=== PATIENT | male | born 1970 | race Caucasian/White ===

== ENCOUNTER 2017-08-18 14:56 | Emergency (ER) | payer OTHER ==
[~2017-08-18] VITALS: Ht 177.8 cm; Wt 100.0 kg
[~2017-08-18 14:56] MED LIST: AMLO10TA2 PO; CORITAB PO; FLUT1SPR9 EACH NARE; LISI40TA PO; MENSTAB4; OMEP40CA2 PO; SILD20TA11 PO; TRIA1TAB5 PO
[2017-08-18 15:28] VITALS: BP 154/82; PULSE 79; RESP 20; TEMP 98.9; O2SAT 94
[2017-08-18] MEDS ORDERED: BENZ100 PO (16:32)
[2017-08-18] MEDS ORDERED: AMLO5TAB2 PO (16:32)
[2017-08-18] MEDS ORDERED: ZITHTAB PO (16:32)
[2017-08-18] MEDS ORDERED: RESP: ALBUTEROL 2.5 MG/IPRATROPIUM 0.5 MG NEB (SCH) INH ONE (17:00)
[2017-08-18 17:24] LABS: AUTOMATED NEUTROPHIL # 5.7 TH/MM3 (1.8-7.7); BASOPHIL % 0.5 % (0.0-2.0); EOSINOPHIL # 0.1 TH/MM3 (0-0.4); EOSINOPHIL % 1.7 % (0.0-4.0); HEMATOCRIT 39.6 % (39.0-51.0); HEMOGLOBIN 13.7 GM/DL (13.0-17.0); LYMPHOCYTE # 1.2 TH/MM3 (1.0-4.8); MEAN CELL VOLUME 88.2 FL (80.0-100.0); MEAN CORPUSCULAR HEMOGLOBIN 30.6 PG (27.0-34.0); MEAN CORPUSCULAR HGB CONC 34.7 % (32.0-36.0); MEAN PLATELET VOLUME 7.3 FL (7.0-11.0); MONO % 8.4 % (0.0-8.0); MONOCYTE # 0.7 TH/MM3 (0-0.9); NEUT % 73.4 % (16.0-70.0); PLATELET COUNT 218 TH/MM3 (150-450); RED BLOOD COUNT 4.49 MIL/MM3 (4.50-5.90); RED CELL DISTRIBUTION WIDTH 13.2 % (11.6-17.2); WHITE BLOOD COUNT 7.8 TH/MM3 (4.0-11.0)
[2017-08-18 17:37] LABS: ALBUMIN 3.2 GM/DL (3.4-5.0); ALKALINE PHOSPHATASE 55 U/L (45-117); ALT (GPT) 39 U/L (12-78); AST (GOT) 38 U/L (15-37); BICARBONATE 28.9 MEQ/L (21.0-32.0); BLOOD UREA NITROGEN 31 MG/DL (7-18); CALCIUM 8.7 MG/DL (8.5-10.1); CHLORIDE 98 MEQ/L (98-107); GLOMERULAR FILTRATION RATE 43 ML/MIN (>89); GLUCOSE,RANDOM 92 MG/DL (74-106); MAGNESIUM 2.5 MG/DL (1.5-2.5); SODIUM (NA) 137 MEQ/L (136-145); TOTAL BILIRUBIN ADULT 0.3 MG/DL (0.2-1.0); TOTAL PROTEIN 7.9 GM/DL (6.4-8.2)
--- NOTE | 2017-08-18 17:40 | PD ---
HPI Chief Complaint: Respiratory Symptoms Time Seen by Provider: 16:22 Travel History International Travel<30 days: No Contact w/Intl Traveler<30days: No Traveled to known affect area: No History of Present Illness HPI 46-year-old male that presents to the ED for evaluation of cold-like symptoms and chest pain. Per patient has had this for about a week. Per patient he has chronic cough. Per patient for about a week the symptoms have been worsening. She states that he has been having shortness of breath with laying down as well as significant cough. He went to see his primary care doctor who started him on antibiotics and cough medication with minimal relief. Symptoms are not improving per patient seemed to be getting worse. Apparently patient had a chest x-ray done outpatient that shows some abnormalities in the recommended that patient get a CT as patient went today to see his provider who recommended that he comes here. Patient denies any abdominal pain. No numbness, drooling, weakness. No headache. Per patient he has pain in his chest and his abdomen secondary to the cough. Per patient her cough gets worse at night. He denies any history of smoking currently but does have a normal history of smoking. No history of COPD or asthma. Allergy to penicillin. Pain per patient is 4 out of 10 mainly on the chest with the cough. PFSH Past Medical History Cardiovascular Problems: Yes (HTN) High Cholesterol: Yes Hypertension: Yes Immunizations Current: Yes Past Surgical History Surgical History: No Previous Surgery Social History Alcohol Use: Yes (socially) Tobacco Use: No Substance Use: No Allergies-Medications (Allergen,Severity, Reaction): Coded Allergies: penicillin G (Verified Allergy, Severe, Rash, 08/18/17) Reported Meds & Prescriptions Reported Meds & Active Scripts Active Guaifenesin-Codeine Liq 100-10 Mg/5 Ml Soln 5 Ml PO Q6H PRN Proair Hfa 8.5 GM Inh (Albuterol Sulfate) 90 Mcg/Act Aer 2 Puff INH Q4-6H PRN 108 mcg/actuation Levaquin (Levofloxacin) 500 Mg Tablet 500 Mg PO DAILY 7 Days Triamterene-Hydrochlorothiazide 75-50 Mg Tab 1 Tab PO DAILY Omeprazole 40 Mg Cap 40 Mg PO DAILY Sildenafil 20 Mg Tab 20 Mg PO TID Flonase Allergy Relief Children Nasal [place] (Fluticasone Nasal [place]) 50 Mcg/ Act [place] 1 [place] EACH NARE DAILY 50 mcg/spray Reported Zithromax Z-Franco (Azithromycin) 250 Mg Dspk 250 Mg PO DIRECTED 500 MG (2 tabs) day 1, then 1 tab days 2-5. Tessalon Perles (Benzonatate) 100 Mg Cap 100 Mg PO TID PRN Amlodipine (Amlodipine Besylate) 5 Mg Tab 5 Mg PO DAILY Review of Systems Except as stated in HPI: all other systems reviewed are Neg Physical Exam Narrative GENERAL: Well-nourished, well-developed patient in no apparent distress. SKIN: Warm and dry. HEAD: Atraumatic. Normocephalic. EYES: Pupils equal and round reactive to light and accommodation. No scleral icterus. No injection or drainage. ENT: No nasal bleeding or discharge. Mucous membranes pink and moist. TMs are clear with no sign of infection or perforation. No mastoid tenderness. Ear canals are intact bilaterally. No lymphadenopathy. Nostril mucosa is red and moist with clear mucus noted. No sinus tenderness to palpation noted. Tonsils are not enlarged or swollen. No ulvua Deviation. Tongue is midline. NECK: Trachea midline. No JVD. No meningeal signs noted CARDIOVASCULAR: Regular rate and rhythm. No murmurs, S3, S4. RESPIRATORY: No accessory muscle use. Clear to auscultation. Breath sounds equal bilaterally. GASTROINTESTINAL: Abdomen soft, non-tender, nondistended. Hepatic and splenic margins not palpable. MUSCULOSKELETAL: Extremities without clubbing, cyanosis, or edema. No obvious deformities. Full range of motion of the upper and lower extremities bilaterally. 2+ pulses bilaterally. NEUROLOGICAL: Awake and alert. No obvious cranial nerve deficits. Motor grossly within normal limits. Five out of 5 muscle strength in the arms and legs. Normal speech. PSYCHIATRIC: Appropriate mood and affect; insight and judgment normal. Data Data Last Documented VS Vital Signs Date Time Temp Pulse Resp B/P (MAP) Pulse Ox O2 Delivery O2 Flow Rate FiO2 08/18/17 17:49 100 17 162/95 (117) 93 Room Air 08/18/17 15:28 98.9 Orders Orders B-Type Natriuretic Peptide (08/18/17 16:39) Complete Blood Count With Diff (08/18/17 16:39) Comprehensive Metabolic Panel (08/18/17 16:39) Magnesium (Mg) (08/18/17 16:39) Iv Access Insert/Monitor (08/18/17 16:39) Ct Thorax/ Chest W Iv Contrast (08/18/17 ) Albuterol-Ipratropium Neb (Duoneb Neb) (08/18/17 17:00) Sodium Chlor 0.9% 1000 Ml Inj (Ns 1000 M (08/18/17 18:00) Potassium Chloride (Kcl) (08/18/17 18:15) Sodium Chlor 0.9% 1... W/Potassium Chlor (08/18/17 18:15) Levofloxacin 500 Mg Premix Inj (Levaquin (08/18/17 19:00) Potassium Chlor 10 Meq Premix (Kcl 10 Me (08/18/17 19:00) Duoneb Q 15 Min X 2 Doses (08/18/17 19:30) Labs Laboratory Tests Test 08/18/17 17:00 White Blood Count 7.8 TH/MM3 Red Blood Count 4.49 MIL/MM3 Hemoglobin 13.7 GM/DL Hematocrit 39.6 % Mean Corpuscular Volume 88.2 FL Mean Corpuscular Hemoglobin 30.6 PG Mean Corpuscular Hemoglobin Concent 34.7 % Red Cell Distribution Width 13.2 % Platelet Count 218 TH/MM3 Mean Platelet Volume 7.3 FL Neutrophils (%) (Auto) 73.4 % Lymphocytes (%) (Auto) 16.0 % Monocytes (%) (Auto) 8.4 % Eosinophils (%) (Auto) 1.7 % Basophils (%) (Auto) 0.5 % Neutrophils # (Auto) 5.7 TH/MM3 Lymphocytes # (Auto) 1.2 TH/MM3 Monocytes # (Auto) 0.7 TH/MM3 Eosinophils # (Auto) 0.1 TH/MM3 Basophils # (Auto) 0.0 TH/MM3 CBC Comment DIFF FINAL Differential Comment Blood Urea Nitrogen 31 MG/DL Creatinine 1.70 MG/DL Random Glucose 92 MG/DL Total Protein 7.9 GM/DL Albumin 3.2 GM/DL Calcium Level 8.7 MG/DL Magnesium Level 2.5 MG/DL Alkaline Phosphatase 55 U/L Aspartate Amino Transf (AST/SGOT) 38 U/L Alanine Aminotransferase (ALT/SGPT) 39 U/L Total Bilirubin 0.3 MG/DL Sodium Level 137 MEQ/L Potassium Level 2.9 MEQ/L Chloride Level 98 MEQ/L Carbon Dioxide Level 28.9 MEQ/L Anion Gap 10 MEQ/L Estimat Glomerular Filtration Rate 43 ML/MIN B-Type Natriuretic Peptide 9 PG/ML MDM Medical Decision Making Medical Screen Exam Complete: Yes Emergency Medical Condition: Yes Medical Record Reviewed: Yes Interpretation(s) CBC & BMP Diagram 08/18/17 17:00 Total Protein 7.9, Albumin 3.2 L, Calcium Level 8.7, Magnesium Level 2.5, Alkaline Phosphatase 55, Aspartate Amino Transf (AST/SGOT) 38 H, Alanine Aminotransferase (ALT/SGPT) 39, Total Bilirubin 0.3 BNP slightly elevated Differential Diagnosis COPD versus bronchitis versus pneumonia versus mass versus cancer versus PE Narrative Course 46-year-old male that presents to the ED for evaluation of patient had an abnormal chest x-ray. Patient was brought here for CT. CT and labs were ordered. CT and labs showed what appears to be likely pneumonia. Otherwise unremarkable exam. Once again under normal limits. O2 within normal limits. Patient was given breathing treatments with improvement of symptoms. Case was discussed with my attending Dr. Daly who was made aware of all findings and she recommends walking test as well as IV and oral antibiotics. Patient recheck in 48 hours. Patient was told this and agrees with plan. Patient was given IV and p.o. potassium as he had low potassium as well as started on IV Levaquin. Patient was given prescriptions for Levaquin, albuterol, codeine cough medication. Told to recheck in 48 hours if no improvement. See ED if any worsening symptoms. Diagnosis Primary Impression: Pneumonia Qualified Codes: J18.1 - Lobar pneumonia, unspecified organism Patient Instructions: General Instructions Departure Forms: Tests/Procedures, Work Release Enter return to work date: August 20, 2017 Additional Instructions: Motrin and Tylenol for pain and fever. You can use [id number] antihistamine as well as well as Mucinex as needed for runny nose and congestion. Cough drops for cough as needed. Drink plenty of fluids. Follow-up with PCP. See ED for worsening symptoms. Med/Other Pt SpecificInfo: Prescription(s) given Scripts Guaifenesin-Codeine Liq (Guaifenesin-Codeine Liq) 100-10 Mg/5 Ml Soln 5 ML PO Q6H Y for COUGH, #180 ML 0 Refills Prov: Carmen Daly MD 08/18/17 Albuterol 8.5 GM Inh (Proair Hfa 8.5 GM Inh) 90 Mcg/Act Aer 2 PUFF INH Q4-6H Y for SHORTNESS OF BREATH, #1 INHALER 0 Refills 108 mcg/actuation Prov: Carmen Daly MD 08/18/17 Levofloxacin (Levaquin) 500 Mg Tablet 500 MG PO DAILY for Infection for 7 Days, #7 TAB 0 Refills Prov: Carmen Daly MD 08/18/17 Disposition: 01 DISCHARGE HOME Condition: Ryland Moser August 18, 2017 17:40
[2017-08-18 17:49] VITALS: BP 162/95; PULSE 100; RESP 17; O2SAT 93
[2017-08-18] MEDS ORDERED: SODIUM CHLOR 0.9% 1000 ML INJ 1,000 ML IV ONE (18:00)
[2017-08-18] MEDS ORDERED: POTASSIUM CHLORIDE INJ 10 MEQ in SODIUM CHLOR 0.9% 1000 ML INJ 1,000 ML IV SCH (18:15)
[2017-08-18] MEDS ORDERED: POTASSIUM CHLORIDE 20 MEQ CONTROLLED RELEASE TAB PO ONE (18:15)
--- NOTE | 2017-08-18 18:36 | RADRPT ---
EXAM DATE/TIME: 08/18/2017 18:14 [facility] COMPARISON: No previous studies available for comparison. INDICATIONS : Abnormal chest x-ray. IV CONTRAST: 45 cc Visipaque (iodixanol) IV RADIATION DOSE: 11.05 CTDIvol (mGy) MEDICAL HISTORY : Hypertension. SURGICAL HISTORY : None. ENCOUNTER: Initial ACUITY: 1 day PAIN SCALE: 0/10 LOCATION: Bilateral chest TECHNIQUE: Volumetric scanning of the chest was performed. Using automated exposure control and adjustment of t he mA and/or kV according to patient size, radiation dose was kept as low as reasonably achievable to obtain optimal diagnostic quality images. DICOM format image data is available electronically for review and comparison. Follow-up recommendations for detected pulmonary nodules are based at a minimum on nodule size and pa tient risk factors according to Fleischner Society Guidelines. FINDINGS: LUNGS: Nodular parenchymal infiltrates are seen involving the left lung. Most pronounced within the super se gment of the lower lobe and posterior segment of the left upper lobe. It is scattered throughout the remaining aspects of the left lower lobe the right lung is less heavily involved. Tiny areas of nodul ar parenchymal consolidation seen within the posterior segment of the right upper lobe and superior s egment of the right lower lobe. No bronchiectasis. PLEURA: There is no pleural thickening or pleural effusion. MEDIASTINUM: The heart and great vessels demonstrate no acute abnormality. There is no mediastinal or hilar lymph adenopathy. AXILLAE: Within normal limits. No lymphadenopathy. SKELETAL: Within normal limits for patient age. MISCELLANEOUS: The visualized upper abdominal organs demonstrate no acute abnormality. CONCLUSION: 1. Bilateral nodular pulmonary infiltrates more pronounced on the left. Likely infectious in etiology . Followup studies to document resolution are suggested. Walter Jones Jr., MD on August 18, 2017 at 18:32 Board Certified Radiologist. This report was verified electronically.
[2017-08-18] MEDS ORDERED: POTASSIUM CHLOR 10 MEQ PREMIX 100 ML IV ONE (19:00)
[2017-08-18] MEDS ORDERED: LEVOFLOXACIN 500 MG PREMIX INJ 100 ML IV ONE (19:00)
[2017-08-18] MEDS ORDERED: LEVA500T33 PO (19:16)
[2017-08-18] MEDS ORDERED: ALBUAER3 INH (19:16)
[2017-08-18] MEDS ORDERED: GUAI100S5 PO (19:16)
[2017-08-18] MEDS: RESP: ALBUTEROL 2.5 MG/IPRATROPIUM 0.5 MG NEB (SCH) INH (19:39)
== END 2017-08-18 21:36 | disposition home or self-care (01) ==
LOC: NEPE 14:56
DX: J18.1 Lobar pneumonia, unspecified organism (principal); I10 Essential (primary) hypertension; R06.02 Shortness of breath; Z79.899 Other long term (current) drug therapy; Z87.891 Personal history of nicotine dependence
CPT/HCPCS: 71260; 80053; 83735; 83880; 85025; 94640; 94664; 96361; 96365; 96367; 99284; J1956; J3480; J7030

== ENCOUNTER 2017-08-22 13:16 | Emergency (ER) | payer OTHER ==
[~2017-08-22] VITALS: Ht 180.3 cm; Wt 104.0 kg
[~2017-08-22 13:16] MED LIST changes: +ALBUAER3 INH; -AMLO10TA2 PO; +AMLO5TAB2 PO; +BENZ100 PO; -CORITAB PO; +GUAI100S5 PO; +LEVA500T33 PO; -LISI40TA PO; -MENSTAB4; +ZITHTAB PO
[2017-08-22 14:13] VITALS: BP 123/76; PULSE 76; RESP 18; TEMP 99; O2SAT 94
[2017-08-22 14:41] VITALS: BP 137/64; PULSE 81; RESP 16; TEMP 98.3; O2SAT 99
[2017-08-22 15:50] LABS: AUTOMATED NEUTROPHIL # 4.2 TH/MM3 (1.8-7.7); BASOPHIL # 0.1 TH/MM3 (0-0.2); BASOPHIL % 0.9 % (0.0-2.0); EOSINOPHIL # 0.1 TH/MM3 (0-0.4); EOSINOPHIL % 1.8 % (0.0-4.0); HEMATOCRIT 38.3 % (39.0-51.0); HEMOGLOBIN 12.7 GM/DL (13.0-17.0); LYMPH % 21.3 % (9.0-44.0); LYMPHOCYTE # 1.3 TH/MM3 (1.0-4.8); MEAN CORPUSCULAR HEMOGLOBIN 29.5 PG (27.0-34.0); MEAN CORPUSCULAR HGB CONC 33.2 % (32.0-36.0); MEAN PLATELET VOLUME 7.4 FL (7.0-11.0); MONO % 6.1 % (0.0-8.0); MONOCYTE # 0.4 TH/MM3 (0-0.9); NEUT % 69.9 % (16.0-70.0); PLATELET COUNT 330 TH/MM3 (150-450); RED BLOOD COUNT 4.31 MIL/MM3 (4.50-5.90)
[2017-08-22 16:09] LABS: ALBUMIN 3.1 GM/DL (3.4-5.0); ALT (GPT) 27 U/L (12-78); AST (GOT) 19 U/L (15-37); BICARBONATE 30.1 MEQ/L (21.0-32.0); BLOOD UREA NITROGEN 16 MG/DL (7-18); CALCIUM 9.3 MG/DL (8.5-10.1); CHLORIDE 101 MEQ/L (98-107); CREATININE 1.12 MG/DL (0.60-1.30); GLOMERULAR FILTRATION RATE 70 ML/MIN (>89); GLUCOSE,RANDOM 149 MG/DL (74-106); SODIUM (NA) 140 MEQ/L (136-145)
[2017-08-22 16:11] LABS: ALKALINE PHOSPHATASE 52 U/L (45-117); TOTAL BILIRUBIN ADULT 0.3 MG/DL (0.2-1.0); TOTAL PROTEIN 8.2 GM/DL (6.4-8.2)
[2017-08-22 17:10] VITALS: BP 143/85; PULSE 69; RESP 20; TEMP 97.8; O2SAT 97
--- NOTE | 2017-08-22 17:28 | PD ---
HPI Chief Complaint: Respiratory Symptoms Time Seen by Provider: 17:10 Travel History International Travel<30 days: No Contact w/Intl Traveler<30days: No Traveled to known affect area: No History of Present Illness HPI This patient was seen here [address] scan revealed nodules that were thought to be infectious. He has been taking Levaquin and using inhaler. He still feels general malaise and has a cough. So he came in for reevaluation. He is not having chest pain. Symptom severity is moderate. No alleviating factors. No exacerbating factors. He quit smoking 20 years ago. Duration 1 week PFSH Past Medical History Cardiovascular Problems: Yes (HTN) High Cholesterol: Yes Hypertension: Yes Immunizations Current: Yes Social History Alcohol Use: Yes (socially) Tobacco Use: No Substance Use: No Allergies-Medications (Allergen,Severity, Reaction): Coded Allergies: penicillin G (Verified Allergy, Severe, Rash, 08/18/17) Reported Meds & Prescriptions Reported Meds & Active Scripts Active Guaifenesin-Codeine Liq 100-10 Mg/5 Ml Soln 5 Ml PO Q6H PRN Proair Hfa 8.5 GM Inh (Albuterol Sulfate) 90 Mcg/Act Aer 2 Puff INH Q4-6H PRN 108 mcg/actuation Levaquin (Levofloxacin) 500 Mg Tablet 500 Mg PO DAILY 7 Days Triamterene-Hydrochlorothiazide 75-50 Mg Tab 1 Tab PO DAILY Omeprazole 40 Mg Cap 40 Mg PO DAILY Reported Amlodipine (Amlodipine Besylate) 5 Mg Tab 5 Mg PO DAILY Review of Systems General / Constitutional: No: Fever Eyes: No: Visual changes HENT: No: Headaches Cardiovascular: No: Chest Pain or Discomfort Respiratory: Positive: Cough, Shortness of Breath Gastrointestinal: No: Abdominal Pain Genitourinary: No: Dysuria Musculoskeletal: No: Pain Skin: No Rash Neurologic: No: Weakness Psychiatric: No: Depression Endocrine: No: Polydipsia Hematologic/Lymphatic: No: Easy Bruising Physical Exam Narrative GENERAL: Well-nourished, well-developed patient in no apparent distress. SKIN: Focused skin assessment reveals no rash and nodules. Skin is Warm and dry. HEAD: Atraumatic. Normocephalic. EYES: Pupils equal and round. No scleral icterus. No injection or drainage. ENT: No nasal bleeding or discharge. Mucous membranes pink and moist. NECK: Trachea midline. No JVD. CARDIOVASCULAR: Regular rate and rhythm. No murmur appreciated. RESPIRATORY: No accessory muscle use. Clear to auscultation. Breath sounds equal bilaterally. GASTROINTESTINAL: Abdomen soft, non-tender, nondistended. Hepatic and splenic margins not palpable. MUSCULOSKELETAL: No obvious deformities. No clubbing. No cyanosis. No edema. NEUROLOGICAL: Awake and alert. No obvious cranial nerve deficits. Motor grossly within normal limits. Normal speech. PSYCHIATRIC: Appropriate mood and affect; insight and judgment normal. Data Data Last Documented VS Vital Signs Date Time Temp Pulse Resp B/P (MAP) Pulse Ox O2 Delivery O2 Flow Rate FiO2 08/22/17 17:10 97.8 69 20 143/85 (104) 97 Room Air Orders Orders Complete Blood Count With Diff (08/22/17 14:17) Comprehensive Metabolic Panel (08/22/17 14:17) Lactic Acid Sepsis Protocol (08/22/17 14:17) Ed Discharge Order (08/22/17 18:54) Labs Laboratory Tests Test 08/22/17 14:37 White Blood Count 6.0 TH/MM3 Red Blood Count 4.31 MIL/MM3 Hemoglobin 12.7 GM/DL Hematocrit 38.3 % Mean Corpuscular Volume 89.0 FL Mean Corpuscular Hemoglobin 29.5 PG Mean Corpuscular Hemoglobin Concent 33.2 % Red Cell Distribution Width 13.0 % Platelet Count 330 TH/MM3 Mean Platelet Volume 7.4 FL Neutrophils (%) (Auto) 69.9 % Lymphocytes (%) (Auto) 21.3 % Monocytes (%) (Auto) 6.1 % Eosinophils (%) (Auto) 1.8 % Basophils (%) (Auto) 0.9 % Neutrophils # (Auto) 4.2 TH/MM3 Lymphocytes # (Auto) 1.3 TH/MM3 Monocytes # (Auto) 0.4 TH/MM3 Eosinophils # (Auto) 0.1 TH/MM3 Basophils # (Auto) 0.1 TH/MM3 CBC Comment DIFF FINAL Differential Comment Blood Urea Nitrogen 16 MG/DL Creatinine 1.12 MG/DL Random Glucose 149 MG/DL Total Protein 8.2 GM/DL Albumin 3.1 GM/DL Calcium Level 9.3 MG/DL Alkaline Phosphatase 52 U/L Aspartate Amino Transf (AST/SGOT) 19 U/L Alanine Aminotransferase (ALT/SGPT) 27 U/L Total Bilirubin 0.3 MG/DL Sodium Level 140 MEQ/L Potassium Level 3.7 MEQ/L Chloride Level 101 MEQ/L Carbon Dioxide Level 30.1 MEQ/L Anion Gap 9 MEQ/L Estimat Glomerular Filtration Rate 70 ML/MIN Lactic Acid Level 1.0 mmol/L MDM Medical Decision Making Medical Screen Exam Complete: Yes Emergency Medical Condition: Yes Medical Record Reviewed: Yes Differential Diagnosis Pneumonia, bronchitis, URI Narrative Course I have reviewed the patient's electronic medical record. I reviewed his ER visit from [address] scan findings. Patient is following up with her primary care on Friday according to him. CBC and metabolic profiles are normal This patient stable for outpatient follow-up. His vitals are normal. His saturations are good. He is already on Levaquin therapy. He does not look septic nor toxic. He looks minimally symptomatic. Diagnosis Primary Impression: Pneumonia Qualified Codes: J18.9 - Pneumonia, unspecified organism Additional Instructions: The patient was advised to follow up with their physician and return if they worsen. Med/Other Pt SpecificInfo: Other Disposition: 01 DISCHARGE HOME Condition: Stable Monroe Katz MD August 22, 2017 17:28
[2017-08-22 19:10] VITALS: BP 138/77; TEMP 97.7
== END 2017-08-22 19:10 | disposition home or self-care (01) ==
LOC: NEPC 13:16
DX: J18.9 Pneumonia, unspecified organism (principal); I10 Essential (primary) hypertension; Z87.891 Personal history of nicotine dependence
CPT/HCPCS: 80053; 83605; 85025; 99283